=== PATIENT | male | born 1985 | race Two or more races ===

== ENCOUNTER 2022-07-04 19:07 | Emergency (ER) | payer SELFPAY ==
[2022-07-04] MEDS ORDERED: Ibuprofen 800 MG Tab ONE (19:26)
[2022-07-04] MEDS ORDERED: Lidocaine 1% 5 ML VIAL ONE (19:26)
[2022-07-04] MEDS ORDERED: Diphtheria,Pertussis(Acell),Tetanus Vaccine 0.5 ML Syringe IM ONE (21:00)
== END 2022-07-04 21:40 | disposition home or self-care (01) ==
LOC: JP.ED 19:07
DX: S61.313A Laceration without foreign body of left middle finger with damage to nail, initial encounter (principal); Z23 Encounter for immunization
CPT/HCPCS: 12001; 90471; 90715; 99282; 99283; A9270